=== PATIENT | female | born 1995 | race Caucasian/White ===

== ENCOUNTER 2019-01-08 05:38 | Emergency (ER) | payer SELFPAY ==
[~2019-01-08] VITALS: Ht 165.1 cm; Wt 151.9 kg
[~2019-01-08 05:38] MED LIST: HYDR-3498 PO
[2019-01-08 05:44] VITALS: BP 151/92; PULSE 98; RESP 16; Ht 165.1 cm; Wt 151.9 kg
[2019-01-08] MEDS ORDERED: NAPR-985 PO (06:22)
[2019-01-08] MEDS ORDERED: AMOX1TAB10 PO (06:22)
--- NOTE | 2019-01-08 06:33 | ERD ---
ER Documentation Chief Complaint Chief Complaint LEFT FACE PAIN AND NUMBNESS X 5 PM YESTERDAY HPI 23-year-old female presenting with left-sided facial pain and questionable swelling to the upper jaw space. Patient noticed this last night. She has not taken medications for symptoms. She also has ear pain and mild congestion. Denies any fevers. Denies any pain with swallowing or shortness of breath. Denies medical problems. NKDA. Surgical history is cholecystectomy. Social history denies ROS All systems reviewed and are negative except as per history of present illness. Medications Home Meds Active Scripts Naproxen* (Naprosyn*) 500 Mg Tablet, 500 MG PO BID PRN for PAIN AND/OR INFLAMMATION, #30 TAB Prov:KAMALA GONZALEZ PA-C 01/08/19 Amoxicillin/Potassium Clav (Amox-Clav 875-125 mg Tablet) 875-125 mg Tab, 1 TAB PO BID for 7 Days, #14 TAB Prov:KAMALA GONZALEZ PA-C 01/08/19 Hydrocodone Bit-Acetaminophen* ([place]*) 5-325 Mg Tab, 1 TAB PO Q6 PRN for PAIN, #20 TAB Prov:LYNN RAYA 06/13/15 Allergies Allergies: Coded Allergies: No Known Drug Allergies (Verified Allergy, Mild, 08/09/13) PMhx/Soc History of Surgery: Yes (total cholecystectomy,kidney stones) Anesthesia Reaction: No Hx Neurological Disorder: No Hx Respiratory Disorders: No Hx Cardiac Disorders: No Hx Psychiatric Problems: No Hx Miscellaneous Medical Probl: No Hx Alcohol Use: No Hx Substance Use: No Hx Tobacco Use: No Smoking Status: Never smoker FmHx Family History: No diabetes, No coronary disease, No other Physical Exam Vitals Vital Signs Date Temp Pulse Resp B/P (MAP) Pulse Ox O2 O2 Flow FiO2 Time Delivery Rate 01/08/19 99.4 98 16 151/92 98 05:44 (111) Physical Exam GENERAL: The patient is well-appearing, well-nourished, in no acute distress HEENT: Atraumatic. Conjunctivae are pink. Pupils equal, round, and reactive to light. There is no scleral icterus. Tympanic membranes clear bilaterally. Oropharynx clear. Tender to palpation over the left upper jaw space with questionable induration and swelling. With biting down on tongue depressor to upper left teeth. NECK: C-spine is soft and supple. There is no meningismus. There is no cervical lymphadenopathy. CHEST: Clear to auscultation bilaterally. There are no rales, wheezes or rhonchi. HEART: Regular rate and rhythm. No murmurs, clicks, rubs or gallops. NEUROLOGIC: Alert and oriented. Cranial nerves II through XII intact. Motor strength in all 4 extremities with 5 out of 5 strength. Sensation grossly intact. Normal speech and gait. Procedures/MDM MDM: 23-year-old female presenting with pain to left upper dental space. Melva ent may have developing dental abscess so we will treat with antibiotics. I have low suspicion for intracranial hemorrhage or neuro deficit. Neuro exam is within normal limits and patient is not complaining of severe headache. I have low suspicion for Rodriguez's palsy as patient has normal cranial nerve exam. Patient is discharged with stricter precautions and told to follow-up with primary care within 1-2 days for close evaluation. Patient is told if symptoms change or worsen to return the ER immediately. All questions answered at discharge Departure Diagnosis: Primary Impression: Pain, dental Condition: Stable Patient Instructions: Dental Pain Referrals: [facility] YOU HAVE RECEIVED A MEDICAL SCREENING EXAM AND THE RESULTS INDICATE THAT YOU DO NOT HAVE A CONDITION THAT REQUIRES URGENT TREATMENT IN THE EMERGENCY DEPARTMENT. FURTHER EVALUATION AND TREATMENT OF YOUR CONDITION CAN WAIT UNTIL YOU ARE SEEN IN YOUR DOCTORS OFFICE WITHIN THE NEXT 1-2 DAYS. IT IS YOUR RESPONSIBILITY TO MAKE AN APPOINTMENT FOR FOLOW-UP CARE. IF YOU HAVE A PRIMARY DOCTOR --you should call your primary doctor and schedule an appointment IF YOU DO NOT HAVE A PRIMARY DOCTOR YOU CAN CALL OUR PHYSICIAN REFERRAL HOTLINE AT IF YOU CAN NOT AFFORD TO SEE A PHYSICIAN YOU CAN CHOSE FROM THE FOLLOWING [facility] [address] [facility]. [facility] [address] [facility] [address] [facility] [address] [facility]. [facility] [address] [facility]. [facility]. [address] Additional Instructions: FOLLOW UP WITH YOUR PRIMARY CARE PHYSICIAN TOMORROW.Return to this facility if you are not improving as expected. KAMALA GONZALEZ PA-C Jan 08, 2019 06:33
== END 2019-01-08 06:49 | disposition home or self-care (01) ==
LOC: FTE 05:38
DX: K08.89 Other specified disorders of teeth and supporting structures (principal)
CPT/HCPCS: 99283